=== PATIENT | male | born 1980 | race Two or more races ===

== ENCOUNTER 2018-10-13 08:13 | Emergency (ER) | payer SELFPAY ==
[~2018-10-13] VITALS: Ht 170.2 cm; Wt 83.9 kg
[2018-10-13] MEDS ORDERED: IOHEXOL 300 MG/ML 100ML BOTTLE IJ ONE (08:32)
[2018-10-13] MEDS ORDERED: diphenhdrAMINE HCL 50 MG/1 ML VL ONE (08:42)
[2018-10-13] MEDS ORDERED: ONDANSETRON HCL 4 MG/2 ML VIAL IV ONE ×2 (09:00→13:45)
[2018-10-13] MEDS ORDERED: diphenhdrAMINE HCL 50 MG/1 ML VL IV ONE (09:00)
[2018-10-13] MEDS ORDERED: HYDROmorphone HCL 2 MG/ML VL IV ONE (09:00)
[2018-10-13] MEDS ORDERED: MORPHINE SULFATE 4 MG/ML SYR/VIAL IV ONE (13:45)
[2018-10-13 15:23] VITALS: BP 154/98
== END 2018-10-13 15:31 | disposition short-term general hospital (02) ==
LOC: EDBD 08:13 → ER 08:16
DX: S22.32XA Fracture of one rib, left side, initial encounter for closed fracture (principal); R51 Headache; W13.2XXA Fall from, out of or through roof, initial encounter; Y93.89 Activity, other specified; Y92.89 Other specified places as the place of occurrence of the external cause; Y99.8 Other external cause status
CPT/HCPCS: 70450; 71260; 72125; 74177; 96374; 96375; 96376; 99285; J1170; J1200; J2270; J2405; Q9967